=== PATIENT | female | born 1955 | race Hispanic/Latino ===

== ENCOUNTER 2020-09-15 14:36 | Emergency (ER) | payer MEDICARE ==
[~2020-09-15 14:36] MED LIST: ASPI-556 PO; FERR-63 PO; INSU10VI3 SQ; LISI30TA4 PO; LORA10TA7 PO; METF-444 PO; METO5 PO; METO50TA18 PO; OXYB10TA30 PO; PRAV40TA3 PO
[2020-09-15 15:23] LABS: APPEARANCE,URINE Cloudy (CLEAR); BILIRUBIN,URINE Negative (NEGATIVE); COLOR,URINE Yellow (YELLOW); GLUCOSE, URINE (UA) >=1000 mg/dL (NEGATIVE); KETONES,URINE Negative (NEGATIVE); LEUKOCYTE ESTERASE ,URINE Large (NEGATIVE); NITRATE,URINE Positive (NEGATIVE); OCCULT BLOOD,URINE Negative (NEGATIVE); PROTEIN,URINE Trace mg/dL (NEGATIVE); UROBILINOGEN,URINE 0.2 mg/dL (0.2-1.0)
[2020-09-15 15:44] LABS: BACTERIA,URINE Many /HPF (None Seen); MUCUS,URINE Few LPF (None Seen); SQUAMOUS EPITHELIAL CELL,UR Few /HPF (0-2)
[2020-09-15 16:04] LABS: BASOPHILS % (AUTO) 0.3 % (0.0-5.0); EOSINOPHILS % (AUTO) 1.8 % (0.0-8.0); LYMPHOCYTES % (AUTO) 22.7 % (21.0-51.0); MEAN CORPUSCULAR HEMOGLOBIN 24.7 pg (27.0-33.0); MEAN CORPUSCULAR HGB CONC 32.3 g/dL (32.0-36.0); MEAN CORPUSCULAR VOLUME 76.5 fL (79-99); MONOCYTES % (AUTO) 4.4 % (3.0-13.0); NEUTROPHILS % (AUTO) 70.3 % (40.0-77.0); PLATELET COUNT (AUTO) 220 K/uL (130-400); RED BLOOD CELL COUNT(AUTO) 3.92 MIL/uL (4.00-5.50); RED CELL DISTRIBUTION WIDTH 15.4 % (11.0-15.5); WHITE BLOOD COUNT (AUTO) 10.5 K/uL (4.8-10.8)
[2020-09-15 16:16] LABS: CREATININE 2.8 mg/dL (0.5-1.5); POTASSIUM 5.9 mmol/L (3.5-5.1)
[2020-09-15 16:21] LABS: ALBUMIN 3.4 g/dL (3.5-5.0); BILIRUBIN,TOTAL 0.3 mg/dL (0.2-1.0); TOTAL PROTEIN, SERUM 7.1 g/dL (6.0-8.3)
[2020-09-15] MEDS ORDERED: SODIUM POLYSTYRENE SULFONATE 15 GM/60 ML ML ONE (17:45)
[2020-09-15] MEDS ORDERED: CEFTRIAXONE SODIUM 1 GM ONE (17:45)
[2020-09-15] MEDS ORDERED: SODIUM CHLORIDE 0.9% 1000ML 1,000 ML IV ONE (17:46)
[2020-09-15] MEDS ORDERED: INSULIN HUMULIN R 100 UNIT/ML 3ML ONE (17:46)
== END 2020-09-15 18:43 | disposition home or self-care (01) ==
LOC: EDH 14:36
DX: D64.9 Anemia, unspecified (principal); E11.65 Type 2 diabetes mellitus with hyperglycemia; E87.5 Hyperkalemia; N28.9 Disorder of kidney and ureter, unspecified; E87.1 Hypo-osmolality and hyponatremia; I10 Essential (primary) hypertension; E78.00 Pure hypercholesterolemia, unspecified; E11.9 Type 2 diabetes mellitus without complications; Z90.49 Acquired absence of other specified parts of digestive tract
CPT/HCPCS: 36415; 71045; 80053; 81001; 82948; 84484; 85025; 87077; 87088; 87186; 93005; 96365; 96375; 99285; J0696; J1815; J7030

== ENCOUNTER 2024-03-29 15:51 | Inpatient (IN) | payer MEDICARE ==
[~2024-03-29] VITALS: Ht 160 cm; Wt 98.8 kg
--- NOTE | 2024-03-29 16:04 | ERN ---
ED Note History of Present Illness Stated Complaint: ABDOMINAL PAIN Chief Complaint: Abdominal Pain Time Seen by MD: 15:52 Dictation: PATIENT IS A 68-YEAR-OLD DIABETIC FEMALE HERE WITH COMPLAINTS OF EPIGASTRIC PAIN WITH NAUSEA VOMITING ONSET THREE DAYS PRIOR TO ARRIVAL. SHE DENIES FEVER CHILLS CHEST PAIN BACK PAIN OR SOB. STATES HER LAST BLOOD SUGAR YESTERDAY WAS 179 ON BEEN UNABLE TO HOLD ANY FOOD OR FLUIDS DOWN FOR THREE DAYS. DID NOT GO SEE HER PRIMARY CARE DOCTOR. Allergies: Coded Allergies: No Allergy Information Available (Verified Allergy, Unknown, 07/30/14) No Known Drug Allergies (Unverified Allergy, Unknown, 08/01/14) Home Meds Active Scripts Cephalexin Monohydrate (Keflex) 500 Mg Cap, 1 CAP PO BID for 7 Days, #14 CAP 0 Refills Prov:SHANNAN DELANEY MD 03/31/24 Discontinued Reported Medications Insuln Asp Prt/Insulin Aspart (Novolog Mix 70-30 Vial) 100 Unit/1 Ml Vial, 0 SQ BID, VIAL novolog 70/30 subq bid , 35 units @0700 and 25 units @1700 11/23/14 Lisinopril (Lisinopril) 30 Mg Tablet, 30 MG PO DAILY, TAB 11/23/14 Ferrous Sulfate (Feosol) 325 Mg Tablet, 325 MG PO DAILY, TAB 07/31/14 Metformin HCl (Metformin HCl) 500 Mg Tablet, 500 MG PO BIDMEALS, TAB 07/31/14 Oxybutynin Chloride (Oxybutynin Chloride ER) 10 Mg Tab.er.24, 10 MG PO HS 07/31/14 Aspirin (Aspir 81) 81 Mg Tablet.dr, 81 MG PO DAILY, TAB 07/31/14 Pravastatin Sodium (Pravastatin Sodium) 40 Mg Tablet, 40 MG PO HS, TAB 07/31/14 Metoprolol Tartrate (Metoprolol Tartrate) 50 Mg Tablet, 50 MG PO BID, TAB 07/31/14 Loratadine (Loratadine) 10 Mg Tablet, 10 MG PO DAILY, TAB 07/31/14 Discontinued Scripts Metoclopramide HCl (Reglan) 5 Mg Tab, 5 MG PO TID PRN for abdominal pain, #30 TAB Prov:JIM JOEL MD 04/28/15 Past Medical History Past Medical History: Diabetes-Type II, High Cholesterol, Hypertension Surgical History: Other History: Not Applicable RN Note Reviewed/Agreed w/PFSH: Yes Review of System Dictation CONSTITUTIONAL: NEGATIVE EXCEPT FOR HPI HEAD/FACE: NEGATIVE EXCEPT FOR HPI EENT: NEGATIVE EXCEPT FOR HPI RESPIRATORY: NEGATIVE EXCEPT FOR HPI GASTROINTESTINAL/ABDOMINAL: NEGATIVE EXCEPT FOR HPI EPIGASTRIC PAIN WITH NAUSEA VOMITING GENITOURINARY: NEGATIVE EXCEPT FOR HPI MUSCULOSKELETAL: NEGATIVE EXCEPT FOR HPI INTEGUMENTARY: NEGATIVE EXCEPT FOR HPI NEUROLOGICAL/PSYCH: NEGATIVE EXCEPT FOR HPI HEMATOLOGIC/LYMPHATIC: NEGATIVE EXCEPT FOR HPI ALL SYSTEMS NEGATIVE, EXCEPT NOTED ABOVE. 13 POINT REVIEW OF SYSTEMS ASSESSED AND ALL NEGATIVE EXCEPT FOR ABOVE. Initial Vital Sign VS Vital Signs Date Time Temp Pulse Resp B/P (MAP) Pulse Ox O2 Delivery O2 Flow Rate FiO2 03/29/24 15:52 99.0 94 20 142/94 99 Room Air 03/29/24 16:20 0 21 Physical Exam Dictation VITAL SIGNS REVIEWED GENERAL APPEARANCE: ALERT, ORIENTED X 3, MODERATE ACUTE DISTRESS, WELL DEVELOPED, NOURISHED. OBESE HEAD AND FACE: NON-TRAUMATIC. EYES: PERRL, PINK CONJUNCTIVAS, EYELID NO TRAUMA, ANTERIOR CHAMBER WITH ARCUS SENILIS. EARS: PINNAS INTACT AND NO SIGNS OF TRAUMA OR ERYTHEMA EAR CANALS CLEAR AND NO DISCHARGE TM NO ERYTHEMA NOSE: NO DISCHARGE, NO BLEEDING. OROPHARYNX: MOUTH NORMAL, TONGUE PINK, PHARYNX CLEAR,NO ERYTHEMA, TONSILS NO EXUDATES, NO ABSCESSES NOTED, MUCOUS MEMBRANE MOIST NECK: SUPPLE, NON-TENDER, NO THYROMEGALY, NO MASSES, NO JVD, NO BRUITS BREAST:DEFERRED CHEST:NO TENDERNESS, NO CREPITUS, NO PARADOXICAL MOVEMENT, NO RETRACTIONS LUNGS:CLEAR, WELL-VENTILATED, SYMMETRIC, NO RALES, NO WHEEZING, NO RHONCHI, NO STRIDOR, GOOD BREATH SOUNDS BILATERALLY HEART: REGULAR RATE, REGULAR RHYTHM, NO MURMUR, NO GALLOPS VASCULAR: NO PERIPHERAL EDEMA, ABDOMEN: SOFT, POSITIVE BOWEL SOUNDS, NONDISTENDED, NO GUARDING, MODERATE EPIGASTRIC TENDERNESS, NO REBOUND, NO MASSES NO HEPATOMEGALY, NO SPLENOMEGALY, NO COOK'S SIGN, NO HERNIAS. RECTAL: DEFERRED GENITAL: DEFERRED NEUROLOGICAL: NORMAL SPEECH, MOTOR FUNCTION INTACT, SENSORY FUNCTION INTACT MUSCULOSKELETAL: NECK NONTENDER, FULL RANGE OF MOTION, BACK NONTENDER, FULL RANGE OF MOTION, EXTREMITIES: NONTENDER, FULL RANGE OF MOTION SKIN: COLOR PINK, DRY, NO TURGOR, NO RASH, NO LACERATIONS, NO ABRASIONS, NO CONTUSIONS. LYMPHATIC: DEFERRED Results (Laboratory/Radiology) Laboratory/Radiology Laboratory Tests Test 03/29/24 16:19 03/29/24 16:30 03/29/24 20:35 03/30/24 00:41 Urine Color LIGHT-YELLOW (YELLOW) Urine Appearance CLOUDY (CLEAR) H Urine pH 5.5 (5.0-8.0) Urine Specific Cord 1.018 (1.001-1.031) Urine Protein 100 mg/dL (NEGATIVE) H Urine Glucose (UA) >=1000 mg/dL (NEGATIVE) H Urine Ketones 40 mg/dL (NEGATIVE) H Urine Occult Blood SMALL (NEGATIVE) H Urine Nitrate NEGATIVE (NEGATIVE) Urine Bilirubin NEGATIVE mg/dL (NEGATIVE) Urine Urobilinogen 0.2 mg/dL (0.2-1.0) Urine Leukocyte Esterase 75 Krystle/uL (NEGATIVE) H Urine RBC 2-5 /HPF (0-1) H Urine WBC 11-25 /HPF (0-1) H Urine Squamous Epithelial Cells RARE /HPF (0-2) Urine Bacteria MOD /HPF (None Seen) Urine Hyaline Casts 0-1 /LPF (0-1 /LPF) White Blood Count 10.2 K/uL (4.8-10.8) Red Blood Count 5.08 MIL/uL (4.00-5.50) Hemoglobin 13.0 g/dL (12.0-16.0) Hematocrit 39.0 % (36-48) Mean Corpuscular Volume 76.8 fL (79-99) L Mean Corpuscular Hemoglobin 25.6 pg (27.0-33.0) L Mean Corpuscular Hemoglobin Concent 33.3 g/dL (32.0-36.0) Red Cell Distribution Width 13.6 % (11.0-15.5) Platelet Count 321 K/uL (130-400) Mean Platelet Volume 10.8 fL (7.5-10.5) H Immature Granulocyte % (Auto) 0.5 % (0-1) Neutrophils (%) (Auto) 82.5 % (40.0-77.0) H Lymphocytes (%) (Auto) 11.8 % (21.0-51.0) L Monocytes (%) (Auto) 5.0 % (3.0-13.0) Eosinophils (%) (Auto) 0.0 % (0.0-8.0) Basophils (%) (Auto) 0.2 % (0.0-5.0) Neutrophils # (Auto) 8.4 K/uL (1.8-7.7) H Lymphocytes # (Auto) 1.2 K/uL (1.0-4.8) Monocytes # (Auto) 0.5 K/uL (0.1-1.0) Eosinophils # (Auto) 0.00 K/uL (0.00-0.70) Basophils # (Auto) 0.02 K/uL (0.00-0.20) Absolute Immature Granulocyte (auto 0.05 K/uL (0-1) Nucleated Red Blood Cells 0.0 % (0.0-0.19) Sodium Level 135 mmol/L (136-145) L Potassium Level 3.5 mmol/L (3.5-5.1) Chloride Level 98 mmol/L (101-111) L Carbon Dioxide Level 26 mmol/L (21-32) Blood Urea Nitrogen 32 mg/dL (7-18) H Creatinine 1.3 mg/dL (0.5-1.0) H Glomerular Filtration Rate Calc 45 mL/min (>90) Random Glucose 280 mg/dL (70-105) H Whole Blood Ketones Quantitative 1.8 mmol/L (0.0-0.6) H Total Calcium 10.4 mg/dL (8.5-10.1) H Troponin I High Sensitivity 25 ng/L (4-50) Whole Blood Glucose 186 MG/DL (70-110) H Blood Gas Specimen Type Arterial Arterial Blood pH 7.399 (7.350-7.450) Arterial Blood Partial Pressure CO2 43 mmHg (32-45) Arterial Blood Partial Pressure O2 72.2 mmHg (83.0-108.0) L Arterial Blood HCO3 25.7 mmol/L (21.0-28.0) Arterial Blood Oxygen Saturation 94.5 % (94.0-98.0) Arterial Blood Base Excess 0.7 mmol/L (-2.0-3.0) Blood Gas Temperature 37.0 CELSIUS (35.5-37.0) Blood Gas Vent Mode RA (ROOM AIR) FiO2 21.0 % Blood Gas Specimen Comment RR, RN MADHU Test 03/30/24 02:40 03/30/24 03:59 03/30/24 05:32 03/30/24 11:54 Influenza Type A Antigen Negative For Type A Influenza Type B Antigen Negative For Type B SARS-CoV-2, RNA, NAAT NEGATIVE SARS CoV-2 White Blood Count 8.7 K/uL (4.8-10.8) Red Blood Count 4.63 MIL/uL (4.00-5.50) Hemoglobin 11.9 g/dL (12.0-16.0) L Hematocrit 35.7 % (36-48) L Mean Corpuscular Volume 77.1 fL (79-99) L Mean Corpuscular Hemoglobin 25.7 pg (27.0-33.0) L Mean Corpuscular Hemoglobin Concent 33.3 g/dL (32.0-36.0) Red Cell Distribution Width 14.0 % (11.0-15.5) Platelet Count 287 K/uL (130-400) Mean Platelet Volume 10.6 fL (7.5-10.5) H Nucleated Red Blood Cells 0.0 % (0.0-0.19) Sodium Level 140 mmol/L (136-145) Potassium Level 3.5 mmol/L (3.5-5.1) Chloride Level 105 mmol/L (101-111) Carbon Dioxide Level 27 mmol/L (21-32) Blood Urea Nitrogen 32 mg/dL (7-18) H Creatinine 1.1 mg/dL (0.5-1.0) H Glomerular Filtration Rate Calc 55 mL/min (>90) Random Glucose 145 mg/dL (70-105) H Hemoglobin A1c 7.7 % (4.0-6.0) H Estimated Average Glucose (eAG) 174 mg/dL (70-126) H Total Calcium 10.1 mg/dL (8.5-10.1) Phosphorus Level 2.7 mg/dL (2.5-4.9) Magnesium Level 1.90 mg/dL (1.80-2.40) Thyroid Stimulating Hormone (TSH) 0.55 uIU/mL (0.36-3.74) Whole Blood Glucose 148 MG/DL (70-110) H 201 MG/DL (70-110) H Test 03/30/24 16:33 03/30/24 19:44 03/31/24 05:45 03/31/24 11:05 Whole Blood Glucose 153 MG/DL (70-110) H 160 MG/DL (70-110) H 122 MG/DL (70-110) H 183 MG/DL (70-110) H Labs Reviewed?: Yes EKG Comment: EKG sinus rhythm/heart rate 79/right bundle branch block/no ectopy ED Course ED Course Orders Procedure Category Date Status Time Cbc With Differential LAB 03/29/24 Complete 16:02 Troponin I High LAB 03/29/24 Complete Sensitivity 16:02 Urinalysis Profile LAB 03/29/24 Complete 16:02 12 Lead Ekg Tracing- EKG 03/29/24 Resulted Technical 16:02 0.9%Nacl 1000ml (Ns PHA 03/29/24 Complete 1000ml) 16:30 Morphine 2mg Syg PHA 03/29/24 Complete (Morphine 2mg Syg) 16:30 Ondansetron 4mg Inj PHA 03/29/24 Complete (Zofran 4mg Inj) 16:30 Famotidine 20mg Vial PHA 03/29/24 Complete (Pepcid 20mg Vial) 16:30 Basic Metabolic Panel LAB 03/29/24 Complete 16:02 Ketone Blood LAB 03/29/24 Complete Quantitative 16:04 Culture Urine CHUCKY 03/29/24 Complete 17:07 Insulin Regular, PHA 03/29/24 Complete Human 3ml (Humulin R 17:46 Ceftriaxone 1g Vial PHA 03/29/24 Complete (Rocephine 1g Inj) 18:00 0.9%Nacl 1000ml (Ns PHA 03/29/24 Complete 1000ml) 18:00 Edm Admit Bridge Order ADM 03/29/24 Transmitted 18:59 Admit Orders ADM 03/29/24 Transmitted 19:19 Vital Signs Every 4 CPOE 03/29/24 Transmitted Hours 20:07 Daily Weights CPOE 03/29/24 Transmitted 20:07 Activity: Ambulate W/ CPOE 03/29/24 Transmitted Assist 20:07 Heart Healthy Diet DIET 03/30/24 Complete Breakfast O2 Order RT 03/29/24 Transmitted 20:07 Cbc Without LAB 03/30/24 Complete Differential 04:00 Basic Metabolic Panel LAB 03/30/24 Complete 04:00 Magnesium LAB 03/30/24 Complete 04:00 Phosphorus LAB 03/30/24 Complete 04:00 Thyroid Stimulating LAB 03/30/24 Complete Hormone 04:00 0.9%Nacl 1000ml (Ns PHA 03/29/24 Complete 1000ml) 20:30 Acetaminophen 325 Tab PHA 03/29/24 Complete (Tylenol 325mg Tab 20:30 Acetaminophen 650mg PHA 03/29/24 Complete Supp (Tylenol 650mg 20:30 Hydrocodone/Apap PHA 03/29/24 Complete 5/325 ([place] 5/325mg) 20:30 Lactulose 20 Gm/30 Ml PHA 03/29/24 Complete Udcup (Constulose 20:30 Docusate Sodium 100 PHA 03/29/24 Complete Mg Cap (Colace 100mg 20:30 Temazepam 15 Mg Cap PHA 03/29/24 Complete (Restoril 15 Mg Cap) 20:30 Ondansetron 4mg Inj PHA 03/29/24 Complete (Zofran 4mg Inj) 20:30 Hydralazine 20mg Inj PHA 03/29/24 Complete (Apresoline 20mg In 20:30 Telemetry Monitoring CPOE 03/29/24 Transmitted 20:07 Initiate SARAHI 03/29/24 Complete Hyperglycemia Protoco 20:07 Insulin Regular, PHA 03/29/24 Complete Human 3ml (Humulin R 21:00 Ceftriaxone 2gm Vial PHA 03/30/24 Complete (Rocephin 2gm Inj) 06:00 Vte High Risk NOTIF 03/29/24 Transmitted Notification 21:50 Arterial Blood Gas RT 03/30/24 Transmitted 00:04 Arterial Blood Gas LAB 03/30/24 Complete 00:41 Chest 1vw RAD 03/30/24 Resulted 01:41 Influenza Type A & B, LAB 03/30/24 Complete Rapid 01:41 Covid Rna Naat LAB 03/30/24 Complete 01:41 Initiate Hypokalemia CPOE 03/30/24 Transmitted Po Half 01:45 Potassium Chloride PHA 03/30/24 Complete 10meq/100ml ([place] 02:00 Potassium Chl 10% PHA 03/30/24 Complete Elixir 20meq (Kcl 10% 02:00 Potassium Chloride PHA 03/30/24 Complete 20meq Er (K-Dur/Klor- 02:00 Notify Physician If CPOE 03/30/24 Transmitted There Is 01:45 Notify Md On The Next CPOE 03/30/24 Transmitted 01:45 Notify Md On The CPOE 03/30/24 Transmitted Next(Cont.) 01:45 Magnesium 2gm Premix PHA 03/30/24 Complete 50ml (Magnesium 2gm 02:00 Initiate Hypoglycemia SARAHI 03/30/24 Complete Protocol 01:45 Dextrose 50%-Water PHA 03/30/24 Complete (D50w) 02:00 Glucagon 1mg Kit PHA 03/30/24 Complete (Glucagon 1mg Kit) 02:00 Famotidine 20mg Tab PHA 03/30/24 Complete (Pepcid 20mg Tab) 09:00 Hemoglobin A1c LAB 03/30/24 Complete 04:00 *General Dc DS 03/31/24 Transmitted Instructions 13:34 Current Medications Medications (Trade) Dose Ordered Sig/Neva Route PRN Reason Start Time Stop Time Status Last Admin Dose Admin Ceftriaxone Sodium (ROCEphine 1G INJ) 1 gm ONCE ONCE IV 03/29/24 18:00 03/29/24 18:01 DC 03/29/24 17:55 Famotidine (Pepcid 20mg Vial) 20 mg ONCE ONCE IV 03/29/24 16:30 03/29/24 16:31 DC 03/29/24 16:20 Insulin Human Regular (humuLIN R 100 UNIT/ML 3ML) 8 unit ONCE STAT IV 03/29/24 17:46 03/29/24 17:52 DC 03/29/24 18:01 Morphine Sulfate (morPHINE 2MG SYG) 2 mg ONCE ONCE IVP 03/29/24 16:30 03/29/24 16:31 DC 03/29/24 16:20 Ondansetron HCl (zoFRAN 4MG INJ) 4 mg ONCE ONCE IVP 03/29/24 16:30 03/29/24 16:31 DC 03/29/24 16:20 Sodium Chloride 1,000 ml @ 0 mls/hr ONCE ONCE IV 03/29/24 16:30 03/29/24 16:31 DC 03/29/24 16:20 Sodium Chloride 1,000 ml @ 0 mls/hr ONCE ONCE IV 03/29/24 18:00 03/29/24 18:01 DC 03/29/24 17:55 Vital Signs Date Time Temp Pulse Resp B/P (MAP) Pulse Ox O2 Delivery O2 Flow Rate FiO2 03/31/24 12:00 98.2 72 19 144/73 95 Room Air 03/31/24 08:00 98 Room Air* 0 21 03/31/24 08:00 98.1 73 19 143/64 94 Room Air 03/31/24 03:58 98.2 69 22 140/71 98 Room Air 03/30/24 23:56 98.2 75 16 141/75 95 Room Air 03/30/24 20:00 95 Room Air* 0 03/30/24 20:00 98.2 66 16 145/76 95 Room Air 03/30/24 16:00 98.1 75 17 146/55 94 Room Air 03/30/24 12:00 98.1 73 17 128/73 92 Room Air 03/30/24 08:00 97.3 86 17 112/76 94 Room Air 03/30/24 08:00 98 Room Air* 0 03/30/24 03:53 98.4 80 14 123/65 97 Room Air 03/30/24 00:00 98.2 74 16 139/70 96 Room Air 03/29/24 21:40 98 Room Air* 0 03/29/24 21:40 98.2 88 20 142/64 96 Room Air 03/29/24 21:20 71 18 142/67 97 Room Air* 0 03/29/24 20:33 98.1 72 18 177/85 97 Room Air* 0 03/29/24 19:37 69 20 121/54 97 Room Air* 0 03/29/24 18:01 78 20 125/57 96 Room Air* 0 03/29/24 17:19 97.3 67 20 135/53 96 Room Air* 0 03/29/24 16:20 97.3 88 20 177/83 96 Room Air* 0 03/29/24 15:52 99.0 94 20 142/94 99 Room Air 1745, PATIENT HAS BLOOD SUGAR OF 280 WITH POSITIVE KETONES AND URINARY TRACT INFECTION. IN ADDITION SHE HAS DEHYDRATION, WE WILL ADMIT PATIENT FOR CONTROL OF HER BLOOD PRESSURE URINARY TRACT INFECTION AND REHYDRATION. ADDITIONALLY SHE WILL BE GIVEN REGULAR INSULIN8 UNITS IV PUSH AND ANOTHER L OF FLUIDS ALONG WITH ROCEPHIN 1 G. 184, SPOKE WITH RENALDO REYNA HOSPITALIST REVIEWED LABS EKG INTERVENTIONS FOR UNCONTROLLED DIABETES UTI AND HYPOKALEMIA. ALL QUESTIONS ANSWERED AND SHE AGREED TO ADMIT PATIENT. HEART Score Response (Comments) Value EKG: Repolarization changes 1 Age: > 65yrs (+2) 2 Risk Factors: 1-2 risk factors (+1) 1 Initial Troponin: Normal limit (0) 0 Total 4 Medical Decision Making MDM MDM: Differential diagnosis: ACS/AMI/uncontrolled diabetes/electrolyte imbalance/dehydration/pneumonia/bronchitis/DKA Rationale: Tests considered and ordered secondary to shared decision making include: labs, ECG and radiology Previous outside records reviewed: Old ER visits. Reviewed Risk of complication and/or morbidity or mortality of patient management: None Medications-Per medication reconciliation see nurse's notes Need for hospitalization: Patient does meet criteria for hospitalization. Acute urinary tract infection/diabetes uncontrolled/dehydration Need for emergency major/minor surgery: No There are no social concerns with this patient. Prescription drug management Prescriptions will include symptomatic care Patient's prior external medical records from other ER visits were reviewed by me as indicated. Prior testing and results from previous visits were reviewed. Prior tests were taken into account with medical decision making and resource utilization, independent historian/historians were used to obtain complete m edical history. I independently interpreted the test that were performed, results were reviewed by me and considered findings on radiology if ordered. Medical management and examination interpretation discussions were had by me with other qualified healthcare professionals as indicated for the patient's care. DX & DISP Disposition: Inpatient Decision to Admit Time: 18:29 Departure Impression: Primary Impression: Uncontrolled diabetes mellitus Additional Impressions: Dehydration, Acute cystitis, Elevated blood ketone body level, Hyponatremia Condition: Stable Scripts Cephalexin Monohydrate (Keflex) 500 Mg Cap 1 CAP PO BID for 7 Days, #14 CAP 0 Refills Prov: SHANNAN DELANEY MD 03/31/24 Referrals: ZO VELASCO (PCP) Time of Disposition: 18:29 I have reviewed the case, and I agree with, Diagnosis and Plan ATTESTATION BY PHYSICIAN I PERFORMED THE SUBSTANTIVE PORTION OF THE VISIT. I HAVE REVIEWED AND PERSONALLY MADE AND APPROVED THE MANAGEMENT PLAN THAT IS DOCUMENTED IN THE NOTE BY MYSELF FOR THE A PP. I ACKNOWLEDGED FOR RESPONSIBILITY FOR THE PATIENT'S MANAGEMENT PLAN. SB TORRES NP Mar 29, 2024 16:04 TAPAN WHITAKER MD Apr 01, 2024 08:27
--- NOTE | 2024-03-29 16:18 | EKG ---
[facility] Test Date: 2024-03-29 Test Time: 16:12:29 Pat Name: SAMIA VALVERDE Department: ED Room: 310 Gender: F Trust Clerk: [id number] : 1955 Requested By: SB TORRES Order Number: [id number] Reading MD: Angel Narvaez Measurements Intervals [place] Rate: 79 P: 29 RI: 130 QRS: -43 QRSD: 139 T: 23 QT: 422 QTc: 485 Interpretive Statements Sinus rhythm RBBB and LAFB Compared to ECG 09/15/2020 15:27:40 Left anterior fascicular block now present Sinus bradycardia no longer present Electronically Signed On 03-30-2024 11:51:09 [employer]F KITCHEN MANAGER by Angel Narvaez Please click the below link to view image of tracing.
[2024-03-29] MEDS: ondanSETRON 4MG INJ IVP ONE (16:20)
[2024-03-29] MEDS: 0.9%NACL 1000ML 1,000 ML IV ONE ×2 (16:20→17:55)
[2024-03-29] MEDS: FAMOTIDINE 20MG VIAL IV ONE (16:20)
[2024-03-29] MEDS: morPHINE 2 MG SYG IVP ONE (16:20)
[2024-03-29 16:38] LABS: BASOPHILS # (AUTO) 0.02 K/uL (0.00-0.20); BASOPHILS % (AUTO) 0.2 % (0.0-5.0); IMMATURE GRANULOCYTE ABSOLUTE 0.05 K/uL (0-1); LYMPHOCYTES # (AUTO) 1.2 K/uL (1.0-4.8); LYMPHOCYTES % (AUTO) 11.8 % (21.0-51.0); MEAN CORPUSCULAR HEMOGLOBIN 25.6 pg (27.0-33.0); MEAN CORPUSCULAR HGB CONC 33.3 g/dL (32.0-36.0); MEAN CORPUSCULAR VOLUME 76.8 fL (79-99); MONOCYTES # (AUTO) 0.5 K/uL (0.1-1.0); NEUTROPHILS # (AUTO) 8.4 K/uL (1.8-7.7); NEUTROPHILS % (AUTO) 82.5 % (40.0-77.0); PLATELET COUNT (AUTO) 321 K/uL (130-400); RED BLOOD CELL COUNT(AUTO) 5.08 MIL/uL (4.00-5.50); RED CELL DISTRIBUTION WIDTH 13.6 % (11.0-15.5); WHITE BLOOD COUNT (AUTO) 10.2 K/uL (4.8-10.8)
[2024-03-29 16:59] LABS: CREATININE 1.3 mg/dL (0.5-1.0); POTASSIUM 3.5 mmol/L (3.5-5.1)
[2024-03-29 17:05] LABS: APPEARANCE,URINE CLOUDY (CLEAR); BILIRUBIN,URINE NEGATIVE (NEGATIVE); COLOR,URINE LIGHT-YELLOW (YELLOW); GLUCOSE, URINE (UA) >=1000 mg/dL (NEGATIVE); KETONES,URINE 40 mg/dL (NEGATIVE); LEUKOCYTE ESTERASE ,URINE 75 Leu/uL (NEGATIVE); NITRATE,URINE NEGATIVE (NEGATIVE); OCCULT BLOOD,URINE SMALL (NEGATIVE); PH,URINE 5.5 (5.0-8.0); PROTEIN,URINE 100 mg/dL (NEGATIVE); UROBILINOGEN,URINE 0.2 mg/dL (0.2-1.0)
[2024-03-29 17:07] LABS: ADD UA MICROSCOPIC YES
[2024-03-29 17:16] LABS: BACTERIA,URINE MOD /HPF (None Seen); HYALINE CASTS, URINE 0-1 /LPF (0-1 /LPF); MUCUS,URINE RARE LPF (None Seen); SQUAMOUS EPITHELIAL CELL,UR RARE /HPF (0-2)
[2024-03-29] MEDS: cefTRIAXone 1G VIAL IV ONE (17:55)
[2024-03-29] MEDS: INSULIN humuLIN R 100 UNIT/ML 3ML IV STA (18:01)
--- NOTE | 2024-03-29 18:06 | NUR ---
PATIENT DOES NOT RECALL WHAT MEDICATIONS SHE TAKES AT HOME. PATIENT INSTRUCTED TO HAVE FAMILY BRING MEDICATIONS FOR RECONCILIATION.
[2024-03-29] MEDS ORDERED: ondanSETRON 4MG INJ IVP PRN (20:30)
[2024-03-29] MEDS ORDERED: LACTULOSE 20 GM/30 ML UDCUP PO PRN (20:30)
[2024-03-29] MEDS ORDERED: doCUSate SODIUM 100 MG CAP PO PRN (20:30)
[2024-03-29] MEDS ORDERED: TEMAZepam 15 MG CAPSULE PO PRN (20:30)
[2024-03-29] MEDS ORDERED: acetaMINOPHEN 650 MG SUPPOSITORY RC PRN (20:30)
[2024-03-29] MEDS: 0.9%NACL 1000ML 1,000 ML IV SCH (20:31)
[2024-03-29] MEDS: INSULIN humuLIN R 100 UNIT/ML 3ML SQ SCH (20:38)
[2024-03-29] MEDS: HYDROcodone/APAP 5/325 1 TAB TABLET PO PRN (20:42)
--- NOTE | 2024-03-29 20:43 | NUR ---
PATIENT HAVING PAIN. PATIENT MEDICATED PER PRN ORDERS.
[2024-03-29] MEDS: hydrALAZine 20MG/ML VIAL IV PRN (21:08)
--- NOTE | 2024-03-29 21:13 | HP ---
[facility] HISTORY AND PHYSICAL Date of Service: Mar 29, 2024 Time of Service: 21:13 PCP: Andres Gay Attending/supervising physicians: Dr. Delaney and Dr. Yates HISTORY OF PRESENT ILLNESS: Ms. Ortiz is a 68-year-old with a history of Diabetes-Type II, High Cholesterol, Hypertension who presented to [facility] ED for evaluation of epigastric pain with nausea, vomiting onset three days prior to arrival. The patient denied fevers, chills, chest pain, back pain, shortness of breath. The patient stated her last blood blood glucose yesterday was 179. The patient reported she was unable to hold any food or fluid down for three days. The patient has not seen her PCP for this. Remarkable lab results: Sodium 135, chloride 98, BUN 32, creatinine 1.3, GFR 45, blood glucose 280, ketones 1.8, total calcium 10.4. UA: cloudy, positive for leuk EST, protein, glucose, ketones. ABGs: PO2 72.2 EKG: Sinus rhythm, heart rate 79 beats per minute, right BBB, no ectopy. ED administered NS2 L bolus, Rocephin 1 g, 8 units of insulin, Pepcid 20 mg IV, Zofran 4 mg IV, morphine 2 mg IV. ED provider request patient be admitted with the diagnosis of uncontrolled diabetes mellitus, dehydration, acute cystitis, elevated blood ketones, and hyponatremia. Patient was admitted under [facility] team. Patient was seen in 310, breathing was even and unlabored, in no distress. I informed patient of labs, diagnostics, plan of care. Patient verbalized understanding and is in agreement with the plan. Plan and assessment are listed below. REVIEW OF SYSTEMS 12-point Ross reviewed with patient. All pertinent positives mentioned above. Otherwise negative, nonpertinent, noncontributory. PAST MEDICAL HISTORY: Diabetes mellitus type 2, hypertension, hyperlipidemia PAST SURGICAL HISTORY: Noncontributory PAST SOCIAL HISTORY: Patient denied: Tobacco, alcohol, illicit drug abuse FAMILY HISTORY: Noncontributory Coded Allergies: No Allergy Information Available (Verified Allergy, Unknown, 07/30/14) No Known Drug Allergies (Unverified Allergy, Unknown, 08/01/14) PHYSICAL EXAM GENERAL APPEARANCE: The patient is awake, alert, and oriented, in no acute cardiopulmonary distress. NEUROLOGICAL: Cranial nerves II-XII grossly intact. Motor is 5/5 in bilateral upper and lower extremities proximal to distal. No sensory deficits. HEENT: Face is symmetric. Pupils are equal and reactive. Extraocular movements are intact. NECK: Supple. No JVD. No thyromegaly. No submental, submandibular, pre- /postauricular, occipital or supraclavicular lymphadenopathy. CHEST: Normal chest expansion. No Telemetry. LUNGS: Absence of any rales, rhonchi or any wheezing. CARDIOVASCULAR: Regular. S1 and S2 normal. No appreciable rubs, murmurs or gallops. ABDOMEN: Obese. Soft, nontender, and nondistended. There is no rebound, voluntary guarding, or rigidity. : Deferred. No Coreas. EXTREMITIES: Non-edematous and not cyanotic. No clubbing. Good capillary refill. SKIN: No skin breakdown. Vital Sign (Last 24 Hours) 03/29/24 20:33 Temp 98.1 Pulse 72 Resp 18 B/P (MAP) 177/85 Pulse Ox 97 O2 Delivery Room Air* O2 Flow Rate 0 FiO2 21 LABS: Laboratory: Test 03/29/24 20:35 03/29/24 16:30 03/29/24 16:19 Range/Units Whole Blood Glucose 186 H 70-110 MG/DL White Blood Count 10.2 4.8-10.8 K/uL Red Blood Count 5.08 4.00-5.50 MIL/uL Hemoglobin 13.0 12.0-16.0 g/dL Hematocrit 39.0 36-48 % Mean Corpuscular Volume 76.8 L 79-99 fL Mean Corpuscular Hemoglobin 25.6 L 27.0-33.0 pg Mean Corpuscular Hemoglobin Concent 33.3 32.0-36.0 g/dL Red Cell Distribution Width 13.6 11.0-15.5 % Platelet Count 321 130-400 K/uL Mean Platelet Volume 10.8 H 7.5-10.5 fL Immature Granulocyte % (Auto) 0.5 0-1 % Neutrophils (%) (Auto) 82.5 H 40.0-77.0 % Lymphocytes (%) (Auto) 11.8 L 21.0-51.0 % Monocytes (%) (Auto) 5.0 3.0-13.0 % Eosinophils (%) (Auto) 0.0 0.0-8.0 % Basophils (%) (Auto) 0.2 0.0-5.0 % Neutrophils # (Auto) 8.4 H 1.8-7.7 K/uL Lymphocytes # (Auto) 1.2 1.0-4.8 K/uL Monocytes # (Auto) 0.5 0.1-1.0 K/uL Eosinophils # (Auto) 0.00 0.00-0.70 K/uL Basophils # (Auto) 0.02 0.00-0.20 K/uL Absolute Immature Granulocyte (auto 0.05 0-1 K/uL Nucleated Red Blood Cells 0.0 0.0-0.19 % Sodium Level 135 L 136-145 mmol/L Potassium Level 3.5 3.5-5.1 mmol/L Chloride Level 98 L 101-111 mmol/L Carbon Dioxide Level 26 21-32 mmol/L Blood Urea Nitrogen 32 H 7-18 mg/dL Creatinine 1.3 H 0.5-1.0 mg/dL Glomerular Filtration Rate Calc 45 >90 mL/min Random Glucose 280 H 70-105 mg/dL Whole Blood Ketones Quantitative 1.8 H 0.0-0.6 mmol/L Total Calcium 10.4 H 8.5-10.1 mg/dL Troponin I High Sensitivity 25 4-50 ng/L Urine Color LIGHT-YELLOW YELLOW Urine Appearance CLOUDY H CLEAR Urine pH 5.5 5.0-8.0 Urine Specific [place] 1.018 1.001-1.031 Urine Protein 100 H NEGATIVE mg/dL Urine Glucose (UA) >=1000 H NEGATIVE mg/dL Urine Ketones 40 H NEGATIVE mg/dL Urine Occult Blood SMALL H NEGATIVE Urine Nitrate NEGATIVE NEGATIVE Urine Bilirubin NEGATIVE NEGATIVE mg/dL Urine Urobilinogen 0.2 0.2-1.0 mg/dL Urine Leukocyte Esterase 75 H NEGATIVE Krystle/uL Urine RBC 2-5 H 0-1 /HPF Urine WBC 11-25 H 0-1 /HPF Urine Squamous Epithelial Cells RARE 0-2 /HPF Urine Bacteria MOD None Seen /HPF Urine Hyaline Casts 0-1 0-1 /LPF /LPF Current Medications Medications (Trade) Dose Ordered Sig/Neva Route PRN Reason Start Time Stop Time Status Last Admin Dose Admin Acetaminophen (TYLenol 325MG TAB) 650 mg Q6H PRN PO FEVER/MILD PAIN LEVEL 1-3 03/29/24 20:30 12/22/24 20:29 Acetaminophen (TYLenol 650MG SUPPOSITORY) 650 mg Q6H PRN RC FEVER / MILD PAIN 1-3 IF NPO 03/29/24 20:30 04/28/24 20:29 Acetaminophen/ Hydrocodone Bitart (NORco 5/325MG) 1 tab Q6H PRN PO MODERATE PAIN (4-6) 03/29/24 20:30 04/03/24 20:29 03/29/24 20:42 1 TAB Ceftriaxone Sodium (Rocephin 2gm Inj) 2 gm DAILY06 IVPB 03/30/24 06:00 04/09/24 05:59 Docusate Sodium (COLace 100MG CAP) 100 mg BID PRN PO c 03/29/24 20:30 04/28/24 20:29 Hydralazine HCl (APRESOLine 20MG INJ) 10 mg Q2H PRN IV SBP GREATER THAN 160 03/29/24 20:30 04/28/24 20:29 03/29/24 21:08 10 MG Insulin Human Regular (humuLIN R 100 UNIT/ML 3ML) 8 unit ONCE STAT IV 03/29/24 17:46 03/29/24 17:52 DC 03/29/24 18:01 8 UNIT Insulin Human Regular (humuLIN R 100 UNIT/ML 3ML) INSULIN SLIDING SCAL... ACHS SQ 03/29/24 21:00 04/28/24 20:59 03/29/24 20:38 4 UNIT Lactulose (Constulose 20gm/ 30ml Udcup) 20 gm Q6H PRN PO CONSTIPATION 03/29/24 20:30 04/28/24 20:29 Ondansetron HCl (zoFRAN 4MG INJ) 4 mg Q6H PRN IVP NAUSEA/VOMITING 03/29/24 20:30 04/28/24 20:29 Sodium Chloride 1,000 ml @ 75 mls/hr [id number] IV 03/29/24 20:30 04/28/24 20:29 03/29/24 20:31 75 MLS/HR Temazepam (restORIL 15 MG CAP) 15 mg HS PRN PO INSOMNIA/SLEEP 03/29/24 20:30 04/28/24 20:29 DIAGNOSTICS / RADIOLOGY: [ ] ASSESSMENT: Gastroenteritis, POA Acute dehydration, POA Acute complicated cystitis, POA Acute hypoxemia, POA Diabetes mellitus with hyperglycemia, POA Acute on chronic renal failure stage 3, GFR 45 Ketonuria and ketonemia, POA (anion gap 11.3) Electrolyte derangement (hyponatremia, hypochloremia, hyperglycemia, hypercalcemia) Chronic problem list: Diabetes-Type II, hypercholesteremia, Hypertension PLAN: Admit to medical floor with telemetry monitoring. Continue IV NS gentle hydration. (ED administered2 L NS) Continue Rocephin IV 2 g IV daily. P.r.n. medications for: Nausea, vomiting, fever, constipation, hypertension. Oxygen as needed to keep SpO2 equal to greater than 92%. Albuterol and Atrovent as needed for shortness of breath or wheezing. Monitor renal and liver function. Monitor electrolytes and treat accordingly. Glucometer checks a.c. and HS with insulin regular sliding scale. Blood pressure checks every4 hours and as needed. A.m. labs: CBC, BNP, Mag, phos, TSH, A1c. DVT and GI prophylaxis: Lovenox and Pepcid Reconcile home medications once available. ADVANCED CARE PLANNING 1. Which of the following were discussed? Hospice Care - No Therapeutic options - Yes Advance Directives - Yes Other discussions - 2. Discussed with who? Patient 3. Voluntary nature of this service was explained to the patient? Yes 4. Amount of time spent - ___ over 35 minute ____ 5. Reviewed by Physician? (if this service was performed by NPP) Yes ADDENDUM: ATTENDING PHYSICIAN ATTESTATION: I have seen and discussed this patient with the midlevel and I agree with their plan. See my addendum for updates to the medical plan MD NAOMIE Ramirez [facility] Mar 29, 2024 21:13 SHANNAN DELANEY MD Mar 30, 2024 15:58
[2024-03-29 21:40] VITALS: BP 142/64; PULSE 88; RESP 20; TEMP 98.2; O2SAT 98
--- NOTE | 2024-03-29 21:40 | NUR ---
ADMIT PT ADMITTED TO ROOM 310,AAOX3. CLAIMS OF STILL HAVING ABDOMINAL PAIN BUT IS SUBSIDING. PT ALREADY MEDICATED FOR PAIN IN ER. ADMISSION CARE DONE. ADMISSION V/S MONITORED, STABLE. ADMISSION ASSESSMENT DONE, PLEASE REFER TO CHART. CONTINUED IVF OF NS FROM ER, REGULATED AT 75CC/HR ORDERED. KEPT RESTED AND COMFORTABLE IN BED. CALL LIGHT WITHIN REACH. BED ALARM ACTIVATED. ORIENTED TO ROOM AND UNIT. IN FOR MORE CARE AND MANAGEMENT. PT'S SON KEYLA INSTRUCTED TO BRING HOME MEDS FROM HOME WHEN HE COMES BACK FOR LISTING. Addendum: 03/29/24 at 2226 by MADHU STEVENS RN RN Amended: Links added.
[2024-03-30] VITALS (7 sets, daily range): BP systolic 112–146; BP diastolic 55–76; PULSE 66–86; RESP 14–17; TEMP 97.4–98.5; O2SAT 95–98
--- NOTE | 2024-03-30 00:05 | NUR ---
ACQUISITIONS ASSISTANT ACQUISITIONS ASSISTANT RENALDO IN TO SEE PT. NEW ORDERS FOR ABG'S RECEIVED, PLEASE REFER TO CPOE.
[2024-03-30 00:42] LABS: ABG BASE EXCESS 0.7 mmol/L (-2.0-3.0); ABG HCO3 25.7 mmol/L (21.0-28.0); ABG OXYGEN SATURATION 94.5 % (94.0-98.0); ABG PCO2 43 mmHg (32-45); ABG PH 7.399 (7.350-7.450); PO2, ARTERIAL BG 72.2 mmHg (83.0-108.0); VENT MODE, BG RA (ROOM AIR)
[2024-03-30] MEDS ORDERED: DEXTROSE 50%-WATER 50 ML DISP.SYRIN IV PRN (02:00)
[2024-03-30] MEDS ORDERED: PoTASSium chloRIDE 10MEQ/100ML 100 ML IV PRN (02:00)
[2024-03-30] MEDS ORDERED: PoTASSium chl 10% ELIXIR 20MEQ 20 MEQ/15 ML UDCUP PO PRN (02:00)
[2024-03-30] MEDS ORDERED: GLUCAGON 1MG KIT 1 MG ML IM PRN (02:00)
[2024-03-30] MEDS ORDERED: MAGNESIUM 2GM PREMIX 50ML 50 ML IV PRN (02:00)
[2024-03-30 03:15] LABS: SARS-CoV-2, RNA, NAAT NEGATIVE SARS CoV-2 (NEGATIVE)
[2024-03-30 03:17] LABS: INFLUENZA TYPE A Negative For Type A (NEGATIVE); INFLUENZA TYPE B Negative For Type B (NEGATIVE)
[2024-03-30 04:16] LABS: HEMATOCRIT 35.7 % (36-48); MEAN CORPUSCULAR HEMOGLOBIN 25.7 pg (27.0-33.0); MEAN CORPUSCULAR HGB CONC 33.3 g/dL (32.0-36.0); MEAN CORPUSCULAR VOLUME 77.1 fL (79-99); RED BLOOD CELL COUNT(AUTO) 4.63 MIL/uL (4.00-5.50); WHITE BLOOD COUNT (AUTO) 8.7 K/uL (4.8-10.8)
[2024-03-30 04:43] LABS: HEMOGLOBIN A1C 7.7 % (4.0-6.0)
[2024-03-30 05:07] LABS: CREATININE 1.1 mg/dL (0.5-1.0); MAGNESIUM 1.9 mg/dL (1.80-2.40); PHOSPHORUS 2.7 mg/dL (2.5-4.9); POTASSIUM 3.5 mmol/L (3.5-5.1); THYROID STIMULATING HORMONE 0.55 uIU/mL (0.36-3.74)
[2024-03-30] MEDS: CEFTRIAXONE 2GM VIAL IVPB SCH (05:08)
--- NOTE | 2024-03-30 05:10 | NUR ---
MEDS PT SLEPT AT LONG INTERVALS DURING THE SHIFT. NO CONCERNS VERBALIZED. NO DISTRESS NOTED. DUE IV ROCEPHIN HUNG. RE-POSIITONED COMFORTABLY IN BED. CALL LIGHT WITHIN REACH. FOR MORE CARE.
[2024-03-30] MEDS: PoTASSium chloRIDE 20MEQ ER 20 MEQ ERTAB PO PRN (05:58)
[2024-03-30] MEDS: FAMOTIDINE 20MG TAB PO SCH (08:52)
--- NOTE | 2024-03-30 09:13 | HMCIMG ---
Exam Type: CHEST 1VW Clinical Information: hypoxemia Comparison: None Findings: The lungs are clear of infiltrates. The heart is normal in size. The bony and soft tissue structures of the chest are unremarkable. Impression: Clear lungs.
[2024-03-30] MEDS: acetaMINOPHEN 325 MG TAB PO PRN (13:30)
--- NOTE | 2024-03-30 16:00 | PN ---
[facility] PROGRESS NOTE Date of Service: Mar 30, 2024 Time of Service: 15:59 SUBJECTIVE: 03/30 patient seen at bedside, no acute events overnight. She reports resolution of her symptoms, she denies any nausea or vomiting at this time. She is growing Gram-negative rods in her urine. We will follow up with cultures and sensitivities. If she has a sensitive bacterial organism she may be a good candidate for discharge tomorrow. REVIEW OF SYSTEMS 12-point Ross reviewed with patient. All pertinent positives mentioned above. Otherwise negative, nonpertinent, noncontributory. PHYSICAL EXAM GENERAL APPEARANCE: The patient is awake, alert, and oriented, in no acute cardiopulmonary distress. NEUROLOGICAL: Cranial nerves II-XII grossly intact. Motor is 5/5 in bilateral upper and lower extremities proximal to distal. No sensory deficits. HEENT: Face is symmetric. Pupils are equal and reactive. Extraocular movements are intact. NECK: Supple. No JVD. No thyromegaly. No submental, submandibular, pre- /postauricular, occipital or supraclavicular lymphadenopathy. CHEST: Normal chest expansion. No Telemetry. LUNGS: Absence of any rales, rhonchi or any wheezing. CARDIOVASCULAR: Regular. S1 and S2 normal. No appreciable rubs, murmurs or gallops. ABDOMEN: Obese. Soft, nontender, and nondistended. There is no rebound, voluntary guarding, or rigidity. : Deferred. No Coreas. EXTREMITIES: Non-edematous and not cyanotic. No clubbing. Good capillary refill. SKIN: No skin breakdown. Vital Signs (last 8hr) Date Time Temp Pulse Resp B/P (MAP) Pulse Ox O2 Delivery O2 Flow Rate FiO2 03/30/24 12:00 98.1 73 17 128/73 92 Room Air 03/30/24 08:00 97.3 86 17 112/76 94 Room Air 03/30/24 08:00 98 Room Air* 0 21 LABS: Laboratory: Test 03/30/24 11:54 03/30/24 03:59 03/30/24 02:40 03/30/24 00:41 Range/Units Whole Blood Glucose 201 H 70-110 MG/DL White Blood Count 8.7 4.8-10.8 K/uL Red Blood Count 4.63 4.00-5.50 MIL/uL Hemoglobin 11.9 L 12.0-16.0 g/dL Hematocrit 35.7 L 36-48 % Mean Corpuscular Volume 77.1 L 79-99 fL Mean Corpuscular Hemoglobin 25.7 L 27.0-33.0 pg Mean Corpuscular Hemoglobin Concent 33.3 32.0-36.0 g/dL Red Cell Distribution Width 14.0 11.0-15.5 % Platelet Count 287 130-400 K/uL Mean Platelet Volume 10.6 H 7.5-10.5 fL Nucleated Red Blood Cells 0.0 0.0-0.19 % Sodium Level 140 136-145 mmol/L Potassium Level 3.5 3.5-5.1 mmol/L Chloride Level 105 101-111 mmol/L Carbon Dioxide Level 27 21-32 mmol/L Blood Urea Nitrogen 32 H 7-18 mg/dL Creatinine 1.1 H 0.5-1.0 mg/dL Glomerular Filtration Rate Calc 55 >90 mL/min Random Glucose 145 H 70-105 mg/dL Hemoglobin A1c 7.7 H 4.0-6.0 % Estimated Average Glucose (eAG) 174 H 70-126 mg/dL Total Calcium 10.1 8.5-10.1 mg/dL Phosphorus Level 2.7 2.5-4.9 mg/dL Magnesium Level 1.90 1.80-2.40 mg/dL Thyroid Stimulating Hormone (TSH) 0.55 0.36-3.74 uIU/mL Influenza Type A Antigen Negative For Type A NEGATIVE Influenza Type B Antigen Negative For Type B NEGATIVE SARS-CoV-2, RNA, NAAT NEGATIVE SARS CoV-2 NEGATIVE Blood Gas Specimen Type Arterial Arterial Blood pH 7.399 7.350-7.450 Arterial Blood Partial Pressure CO2 43 32-45 mmHg Arterial Blood Partial Pressure O2 72.2 L 83.0-108.0 mmHg Arterial Blood HCO3 25.7 21.0-28.0 mmol/L Arterial Blood Oxygen Saturation 94.5 94.0-98.0 % Arterial Blood Base Excess 0.7 -2.0-3.0 mmol/L Blood Gas Temperature 37.0 35.5-37.0 CELSIUS Blood Gas Vent Mode RA ROOM AIR FiO2 21.0 % Blood Gas Specimen Comment RR, RN MADHU Test 03/29/24 16:30 03/29/24 16:19 Range/Units Immature Granulocyte % (Auto) 0.5 0-1 % Neutrophils (%) (Auto) 82.5 H 40.0-77.0 % Lymphocytes (%) (Auto) 11.8 L 21.0-51.0 % Monocytes (%) (Auto) 5.0 3.0-13.0 % Eosinophils (%) (Auto) 0.0 0.0-8.0 % Basophils (%) (Auto) 0.2 0.0-5.0 % Neutrophils # (Auto) 8.4 H 1.8-7.7 K/uL Lymphocytes # (Auto) 1.2 1.0-4.8 K/uL Monocytes # (Auto) 0.5 0.1-1.0 K/uL Eosinophils # (Auto) 0.00 0.00-0.70 K/uL Basophils # (Auto) 0.02 0.00-0.20 K/uL Absolute Immature Granulocyte (auto 0.05 0-1 K/uL Whole Blood Ketones Quantitative 1.8 H 0.0-0.6 mmol/L Troponin I High Sensitivity 25 4-50 ng/L Urine Color LIGHT-YELLOW YELLOW Urine Appearance CLOUDY H CLEAR Urine pH 5.5 5.0-8.0 Urine Specific [place] 1.018 1.001-1.031 Urine Protein 100 H NEGATIVE mg/dL Urine Glucose (UA) >=1000 H NEGATIVE mg/dL Urine Ketones 40 H NEGATIVE mg/dL Urine Occult Blood SMALL H NEGATIVE Urine Nitrate NEGATIVE NEGATIVE Urine Bilirubin NEGATIVE NEGATIVE mg/dL Urine Urobilinogen 0.2 0.2-1.0 mg/dL Urine Leukocyte Esterase 75 H NEGATIVE Krystle/uL Urine RBC 2-5 H 0-1 /HPF Urine WBC 11-25 H 0-1 /HPF Urine Squamous Epithelial Cells RARE 0-2 /HPF Urine Bacteria MOD None Seen /HPF Urine Hyaline Casts 0-1 0-1 /LPF /LPF Current Medications Medications (Trade) Dose Ordered Sig/Neva Route PRN Reason Start Time Stop Time Status Last Admin Dose Admin Acetaminophen (TYLenol 325MG TAB) 650 mg Q6H PRN PO FEVER/MILD PAIN LEVEL 1-3 03/29/24 20:30 04/28/24 20:29 03/30/24 13:30 650 MG Acetaminophen (TYLenol 650MG SUPPOSITORY) 650 mg Q6H PRN RC FEVER / MILD PAIN 1-3 IF NPO 03/29/24 20:30 04/28/24 20:29 Acetaminophen/ Hydrocodone Bitart (NORco 5/325MG) 1 tab Q6H PRN PO MODERATE PAIN (4-6) 03/29/24 20:30 04/03/24 20:29 03/29/24 20:42 1 TAB Ceftriaxone Sodium (Rocephin 2gm Inj) 2 gm DAILY06 IVPB 03/30/24 06:00 04/09/24 05:59 03/30/24 05:08 2 GM Dextrose (D50w) 50 ml AD PRN IV HYPOGLYCEMIA PROTOCOL 03/30/24 02:00 04/29/24 01:59 Docusate Sodium (COLace 100MG CAP) 100 mg BID PRN PO c 03/29/24 20:30 04/28/24 20:29 Famotidine (Pepcid 20mg Tab) 20 mg Q24H PO 03/30/24 09:00 04/29/24 08:59 03/30/24 08:52 20 MG Glucagon (Glucagon 1mg Kit) 1 mg AD PRN IM HYPOGLYCEMIA PROTOCOL 03/30/24 02:00 04/29/24 01:59 Hydralazine HCl (APRESOLine 20MG INJ) 10 mg Q2H PRN IV SBP GREATER THAN 160 03/29/24 20:30 04/28/24 20:29 03/29/24 21:08 10 MG Insulin Human Regular (humuLIN R 100 UNIT/ML 3ML) 8 unit ONCE STAT IV 03/29/24 17:46 03/29/24 17:52 DC 03/29/24 18:01 8 UNIT Insulin Human Regular (humuLIN R 100 UNIT/ML 3ML) INSULIN SLIDING SCAL... ACHS SQ 03/29/24 21:00 04/28/24 20:59 03/30/24 13:12 6 UNIT Lactulose (Constulose 20gm/ 30ml Udcup) 20 gm Q6H PRN PO CONSTIPATION 03/29/24 20:30 04/28/24 20:29 Magnesium Sulfate 50 ml @ 0 mls/hr PROTOCOL PRN IV MAGNESIUM PROTOCOL 03/30/24 02:00 04/29/24 01:59 Ondansetron HCl (zoFRAN 4MG INJ) 4 mg Q6H PRN IVP NAUSEA/VOMITING 03/29/24 20:30 04/28/24 20:29 Potassium Chloride 100 ml @ 100 mls/hr AD PRN IV POTASSIUM PROTOCOL 03/30/24 02:00 04/29/24 01:59 Potassium Chloride (K-Dur/Klor-Con 20meq) 10 meq AD PRN PO POTASSIUM PROTOCOL 03/30/24 02:00 04/29/24 01:59 03/30/24 15:49 10 MEQ Potassium Chloride (KCl 10% Elixir 20meq/15ml) 10 meq AD PRN PO POTASSIUM PROTOCOL 03/30/24 02:00 04/29/24 01:59 Sodium Chloride 1,000 ml @ 75 mls/hr [id number] IV 03/29/24 20:30 04/28/24 20:29 03/30/24 08:57 75 MLS/HR Temazepam (restORIL 15 MG CAP) 15 mg HS PRN PO INSOMNIA/SLEEP 03/29/24 20:30 04/28/24 20:29 DIAGNOSTICS / RADIOLOGY: [ ] ASSESSMENT: Gastroenteritis, POA Acute dehydration, POA Acute complicated cystitis, POA Acute hypoxemia, POA Diabetes mellitus with hyperglycemia, POA Acute on chronic renal failure stage 3, GFR 45 Ketonuria and ketonemia, POA (anion gap 11.3) Electrolyte derangement (hyponatremia, hypochloremia, hyperglycemia, hypercalcemia) Chronic problem list: Diabetes-Type II, hypercholesteremia, Hypertension PLAN: Continue IV NS gentle hydration. (ED administered2 L NS) Continue Rocephin IV 2 g IV daily. P.r.n. medications for: Nausea, vomiting, fever, constipation, hypertension. Oxygen as needed to keep SpO2 equal to greater than 92%. Monitor renal and liver function. Monitor electrolytes and treat accordingly. Glucometer checks a.c. and HS with insulin regular sliding scale. Blood pressure checks every4 hours and as needed. DVT and GI prophylaxis: Lovenox and Pepcid Disposition: Pending cultures and sensitivities SHANNAN DELANEY MD Mar 30, 2024 16:00
[2024-03-31 03:58] VITALS: BP 140/71; PULSE 69; RESP 22; TEMP 98.2
[2024-03-31 08:00] VITALS: BP 143/64; PULSE 73; RESP 19; TEMP 98; O2SAT 98
--- NOTE | 2024-03-31 11:15 | NUR ---
DCP: HOME Sw met with pt who states she lives alone in a mobile home that has ramp, on SSI, able to complete ADLS with some difficulty. Pt referred to PCP to start edvin for provider services. Pt has walker with seat and shower chair. No HH or HD, PCP is Snehal Gay and uses RX pharm for her rx. DCP is home Addendum: 03/31/24 at 1122 by JOVANY GRANADOS Amended: Links added.
[2024-03-31 12:00] VITALS: BP 144/73; PULSE 72; RESP 19; TEMP 98.2
[2024-03-31] MEDS ORDERED: CEPH500B PO ×2 (13:33→14:05)
--- NOTE | 2024-03-31 13:44 | DS ---
Discharge Summary Hospital Course Summary: 68-year-old female presented with nausea and vomiting. She was admitted and studies were taken, she was noted to have a UTI. She was started on empiric antibiotics and by hospital day two her urine grew out pansensitive E coli. After admission her symptoms quickly resolved. By hospital day two she was back to baseline and cleared for discharge back home. She will be discharged home on seven day course Keflex to follow up with her PCP in 3-7 days. . Procedure(s): Exam Type: CHEST 1VW Clinical Information: hypoxemia Comparison: None Findings: The lungs are clear of infiltrates. The heart is normal in size. The bony and soft tissue structures of the chest are unremarkable. Impression: Clear lungs. Assessment/Plan: Gastroenteritis, ruled out POA Acute dehydration, resolved POA Acute complicated cystitis, E. Coli, POA Acute hypoxemia, POA Diabetes mellitus with hyperglycemia, last A1C 7.3 POA Acute on chronic renal failure stage 3, GFR 45 Ketonuria and ketonemia, POA (anion gap 11.3) Electrolyte derangement (hyponatremia, hypochloremia, hyperglycemia, hypercalcemia) Chronic problem list: Diabetes-Type II, hypercholesteremia, Hypertension Discharge Instructions: Follow up with PCP in 3-7 days Home Medications: Discontinued Reported Medications Insuln Asp Prt/Insulin Aspart (Novolog Mix 70-30 Vial) 100 Unit/1 Ml Vial, 0 SQ BID, VIAL novolog 70/30 subq bid , 35 units @0700 and 25 units @1700 11/23/14 Lisinopril (Lisinopril) 30 Mg Tablet, 30 MG PO DAILY, TAB 11/23/14 Ferrous Sulfate (Feosol) 325 Mg Tablet, 325 MG PO DAILY, TAB 07/31/14 Metformin HCl (Metformin HCl) 500 Mg Tablet, 500 MG PO BIDMEALS, TAB 07/31/14 Oxybutynin Chloride (Oxybutynin Chloride ER) 10 Mg Tab.er.24, 10 MG PO HS 07/31/14 Aspirin (Aspir 81) 81 Mg Tablet.dr, 81 MG PO DAILY, TAB 07/31/14 Pravastatin Sodium (Pravastatin Sodium) 40 Mg Tablet, 40 MG PO HS, TAB 07/31/14 Metoprolol Tartrate (Metoprolol Tartrate) 50 Mg Tablet, 50 MG PO BID, TAB 07/31/14 Loratadine (Loratadine) 10 Mg Tablet, 10 MG PO DAILY, TAB 07/31/14 Discontinued Scripts Metoclopramide HCl (Reglan) 5 Mg Tab, 5 MG PO TID PRN for abdominal pain, #30 TAB Prov:JIM JOEL MD 04/28/15 New Medications: Cephalexin Monohydrate (Keflex) 500 Mg Cap 1 CAP PO BID for 7 Days, #14 CAP 0 Refills Time spent arranging discharge: 31-60 minutes SHANNAN DELANEY MD Mar 31, 2024 13:44
== END 2024-03-31 14:43 | disposition home or self-care (01) | DRG 638 ==
LOC: EDH 15:51 → EDHIP 19:19 → 3BH 21:24
PROVIDERS: ADMIT Internal Medicine; ATTEND Internal Medicine
DX: E11.65 Type 2 diabetes mellitus with hyperglycemia (principal); E87.1 Hypo-osmolality and hyponatremia; N30.00 Acute cystitis without hematuria; N17.9 Acute kidney failure, unspecified; B96.20 Unspecified Escherichia coli [E. coli] as the cause of diseases classified elsewhere; E11.22 Type 2 diabetes mellitus with diabetic chronic kidney disease; E78.00 Pure hypercholesterolemia, unspecified; E83.52 Hypercalcemia; E87.8 Other disorders of electrolyte and fluid balance, not elsewhere classified; E86.0 Dehydration; I12.9 Hypertensive chronic kidney disease with stage 1 through stage 4 chronic kidney disease, or unspecified chronic kidney disease; I45.10 Unspecified right bundle-branch block; R09.02 Hypoxemia; N18.30 Chronic kidney disease, stage 3 unspecified
CPT/HCPCS: 36415; 36600; 71045; 80048; 81001; 82010; 82803; 82948; 83036; 83735; 84100; 84443; 84484; 85025; 85027; 87086; 87186; 87635; 87804; 93005; 96365; 96366; 96375; 99285; G0378; J0360; J0696; J1815; J2270; J2405; J3475; J3490; J7030